=== PATIENT | female | born 1965 | race African-American/Black ===

== ENCOUNTER 2023-12-16 09:25 | Emergency (ER) | payer MEDICAID ==
[~2023-12-16] VITALS: Ht 172.7 cm; Wt 64.0 kg
[2023-12-16 09:31] VITALS: TEMP 98.3; O2SAT 100
[2023-12-16] MEDS: KETOROLAC 15MG/ML VIAL IM ONE (10:30)
[2023-12-16 10:53] LABS: CLARITY URINE CLEAR (CLEAR); COLOR URINE YELLOW (YELLOW); GLUCOSE URINE NEGATIVE (NEGATIVE); KETONES URINE NEGATIVE (NEGATIVE); LEUKOCYTE ESTERASE URINE NEGATIVE (NEGATIVE); NITRITE URINE NEGATIVE (NEGATIVE); OCCULT BLOOD URINE NEGATIVE (NEGATIVE); PH URINE 6.5 (4.5-8.0); PROTEIN URINE NEGATIVE (NEGATIVE); SPECIFIC GRAVITY URINE 1.008 (1.005-1.030)
[2023-12-16] MEDS ORDERED: NAPR500T7 MT (13:36)
[2023-12-16] MEDS ORDERED: CYCL10TA21 MT (13:36)
[2023-12-16 13:46] VITALS: BP 120/70; PULSE 80; RESP 15; O2SAT 99
== END 2023-12-16 13:47 | disposition home or self-care (01) ==
LOC: ER 09:25
DX: R07.81 Pleurodynia (principal); M25.551 Pain in right hip; R55 Syncope and collapse; W01.0XXA Fall on same level from slipping, tripping and stumbling without subsequent striking against object, initial encounter; Y93.89 Activity, other specified; Y92.89 Other specified places as the place of occurrence of the external cause; Y99.8 Other external cause status; Z88.5 Allergy status to narcotic agent; Z98.890 Other specified postprocedural states
CPT/HCPCS: 81003; 81025; 71250; 74176; 96372; 99285; J1885; Z7610

== ENCOUNTER 2024-11-16 13:13 | Emergency (ER) | payer MEDICAID ==
[~2024-11-16] VITALS: Ht 172.7 cm; Wt 59.0 kg
[~2024-11-16 13:13] MED LIST: CYCL10TA21 MT; NAPR-1486 MT
[2024-11-16 13:21] VITALS: O2SAT 99
[2024-11-16 15:06] LABS: CLARITY URINE CLEAR (CLEAR); COLOR URINE YELLOW (YELLOW); GLUCOSE URINE NEGATIVE (NEGATIVE); KETONES URINE NEGATIVE (NEGATIVE); LEUKOCYTE ESTERASE URINE 1+ (NEGATIVE); NITRITE URINE NEGATIVE (NEGATIVE); OCCULT BLOOD URINE NEGATIVE (NEGATIVE); PH URINE 6.5 (4.5-8.0); PROTEIN URINE NEGATIVE (NEGATIVE); SPECIFIC GRAVITY URINE 1.005 (1.005-1.030); UROBILINOGEN URINE 0.2 E.U./dL (0.2-1.0)
[2024-11-16 15:22] LABS: BASOPHILS % 1.0 % (0.0-2.0); EOSINOPHILS % 1.0 % (0.0-5.0); HEMATOCRIT. 39.3 % (36.0-48.0); HEMOGLOBIN. 13.0 g/dL (12.0-16.0); LYMPHOCYTES % 29.0 % (20.0-50.0); MEAN PLATELET VOLUME 9.2 fl (7.4-10.4); MONOCYTES % 8.6 % (2.0-8.0); NEUTROPHILS % 60.4 % (40.0-76.0); PLATELET 193 x1000/uL (130-400); RED BLOOD CELL COUNT 4.47 mill/uL (4.2-5.4); RED CELL DISTRIBUTION WIDTH 15.4 % (11.6-14.6)
[2024-11-16 15:34] LABS: SQUAMOUS EPITHELIAL CELL URINE FEW /lpf (RARE/1+)
[2024-11-16 15:35] LABS: BACTERIA URINE 1+; RBC URINE 0-2 /hpf (0-2)
[2024-11-16 15:36] LABS: CREATININE 0.7 mg/dL (0.6-1.0); TROPONIN I HIGH SENSITIVITY 4 ng/L (3.0-34); UREA NITROGEN BLOOD 9 mg/dL (9-23)
[2024-11-16 15:38] LABS: ASPARTATE AMINOTRANSFERASE 20 IU/L (<34); BILIRUBIN DIRECT 0.2 mg/dL (<=3.0); BILIRUBIN TOTAL 0.9 mg/dL (0.1-1.0); PROTEIN TOTAL 7.5 g/dL (6.0-8.3)
[2024-11-16] MEDS ORDERED: NITR-87 MT (15:53)
[2024-11-16 16:26] VITALS: BP 146/74; PULSE 62; RESP 18; TEMP 36.8; O2SAT 98
== END 2024-11-16 16:28 | disposition home or self-care (01) ==
LOC: ER 13:13
DX: N39.0 Urinary tract infection, site not specified (principal); D64.9 Anemia, unspecified; R06.02 Shortness of breath; Z88.5 Allergy status to narcotic agent; Z87.440 Personal history of urinary (tract) infections; Z98.890 Other specified postprocedural states
CPT/HCPCS: 36415; 71045; 80048; 80076; 81003; 83735; 83880; 84484; 85025; 86850; 86870; 86900; 93005; 99285